=== PATIENT | male | born 1945 | race Caucasian/White ===

== ENCOUNTER 2016-08-16 17:30 | Inpatient (IN) | payer OTHER, BC ==
[~2016-08-16] VITALS: Ht 185.4 cm; Wt 78.5 kg
--- NOTE | ~2016-08-16 | HC ---
[facility] [place] [address] [address] [place] [address] CONSULTATION Name: VERA MORENO Zofia Room #: 419-P [facility] IN ..#: [id number] Admission: 08/16/16 Attend Phys: Neri Ang MD Discharge: 08/18/16 Date of : 47 Report #: [id number] THIS REPORT FOR: //name// CC: STEVE physician/PCP Damaso Pavon PRIMARY CARE PHYSICIAN: None. PARTS PROFESSIONAL: at [facility]. REFERRING PHYSICIAN: Dr. Pavon. REASON FOR REFERRAL: Dyspnea, large pleural effusion. HISTORY OF PRESENT ILLNESS: The patient is a 71-year-old white male who presented to the Emergency Room with progressive dyspnea. Chest x-ray and chest CT shows a large left-sided pleural effusion. A pulmonary consultation was requested. The patient states that he has been not feeling well for the past 4 months. He thinks he had flu about 4 months ago. Ever since then, he noticed that his energy level was not normal. He has had mild dyspnea that has been progressive more recently. Otherwise, the patient has been relatively healthy except for rheumatoid arthritis for which he is on Humira and methotrexate. He had lived in [place], [place] for most of his life and recently moved to the [place] area. Otherwise, denies any night sweats, fevers, chills, chest pain. Denies any recent weight loss. The patient does smoke about a pack a day for most of his life. PAST MEDICAL HISTORY: As mentioned above, rheumatoid arthritis, tobacco abuse. PAST SURGICAL HISTORY: Unremarkable. ALLERGIES: None to medications. HOME MEDICATIONS: Methotrexate, Humira, ibuprofen, fish oil supplements, cholecalciferol supplements. FAMILY HISTORY: Noncontributory. SOCIAL HISTORY: He smokes about a pack a day and has done so most of his life. [facility] [address] [place] [address] CONSULTATION Name: JOSHVERA P Room #: 419-P [facility] IN [facility]#: [id number] Admission: 08/16/16 Attend Phys: Neri Ang MD Discharge: 08/18/16 Date of : 47 Report #: [id number] He is , recently moved from [place]. His children live in [place] area. He is retired. FAMILY HISTORY: Noncontributory. REVIEW OF SYSTEMS: As mentioned above, otherwise 10-point system review negative. PHYSICAL EXAMINATION: GENERAL: He is awake, alert, in no apparent distress. VITAL SIGNS: Temperature is 98 degrees Fahrenheit, pulse is 80, respiratory rate is 20, blood pressure 123/72 mmHg, saturation 93% on 4 liters of O2. HEENT: Normocephalic, atraumatic. NECK: Supple, without lymphadenopathy or thyromegaly. CHEST: Breath sounds are decreased in the left lung field. Right lung field revealed clear breath sounds. CARDIOVASCULAR: Normal S1, S2. No murmurs or gallop. Pulses are 2+/4+ bilaterally. ABDOMEN: Soft, nontender, no organomegaly or masses felt. GENITOURINARY AND RECTAL: Deferred. EXTREMITIES: No cyanosis or edema. Mild clubbing is noted in his digits. LABORATORY DATA: CT chest was reviewed. It shows a large left-sided pleural effusion, there appears to be a density involving the infrahilar, subcarinal area. Atelectasis, left lower lobe is noted. Echocardiogram was unremarkable. Note that the CT chest angiogram did not show any evidence of pulmonary embolus. Leg Doppler ultrasound was negative. Sodium 123, potassium 3.9, chloride 92, CO2 is 21, BUN is 14, creatinine 0.8. Liver function test is grossly unremarkable except for elevated alkaline phosphatase. WBC 10,800, hemoglobin is 12.5, platelets are normal. Arterial blood gas revealed pH 7.40, pCO2 of 30, pO2 53 on room air, albumin 3.4. IMPRESSION: 1. Large left-sided pleural effusion in this 71-year-old white male with what appears to be mediastinal lymphadenopathy. The patient has smoked most of his life. He reports history of influenza about 4 months ago. exam shows mild clubbing. Etiology is probably related to neoplastic process resulting in a large pleural effusion. Other considerations include parapneumonic effusion. Transudative effusion is felt to be less likely given a normal echocardiogram. 2. Acute hypoxic respiratory failure due to above. 3. Lifelong history of tobacco abuse. 4. Rheumatoid arthritis. I do not think this is related to rheumatoid, pleural effusion. RECOMMENDATION: I agree with thoracentesis. It was sent for microbiologic studies along with cytology. We will then repeat the chest CT to better assess [address] [address] CONSULTATION Name: VERA MORENO Room #: 419-P [facility] IN ..#: [id number] Admission: 08/16/16 Attend Phys: Neri Ang MD Discharge: 08/18/16 Date of : 47 Report #: [id number] the mediastinal area. The patient may eventually need bronchoscopy or even ultrasound bronchoscopy. If the patient is stable following large volume thoracentesis, the patient could be discharged and some other workup can be performed as an outpatient. Lastly, smoke cessation is recommended. Thank you for this consultation. <ELECTRONICALLY SIGNED> By: Bryce Lora MD 08/22/16 1125 1206 2208 Bryce Lora MD /nt
--- NOTE | ~2016-08-16 | EKG ---
[address] [address] ELECTROCARDIOGRAM REPORT Name: VERA MORENO Room #: 419-P [facility] IN [facility]#: [id number] Admission: 08/16/16 Attend Phys: Neri Ang MD Discharge: 08/18/16 Date of : 47 Report #: [id number] THIS REPORT FOR: //name// [facility] ED Test Date: 2016-08-16 Test Time: 18:59:07 Pat Name: VERA JACKSONCHYNA Department: Room: [facility] Gender: M Clinical Appeals Reviewer: jihan : 1945 Requested By: Ramon Haley Order Number: [id number] MD: Barrett Feliciano Measurements Intervals [place] Rate: 74 P: 33 MI: 145 QRS: 65 QRSD: 119 T: 33 QT: 387 QTc: 430 Interpretive Statements Sinus rhythm Probable left atrial enlargement Nonspecific intraventricular conduction delay Low voltage, precordial leads Baseline wander in lead(s) V3 No previous ECG available for comparison Electronically Signed On 08-21-2016 8:08:14 CDT by Barrett Feliciano [email or web address] <ELECTRONICALLY SIGNED> By: Barrett Feliciano MD 08/21/16 0808 58 58 Barrett Feliciano MD /EPI
--- NOTE | ~2016-08-16 | 2DMMODE ---
[facility] [place] [address] 2 D/M-MODE ECHOCARDIOGRAM Name: VERA MORENO Room #: 249-P [facility] IN M.R.#: [id number] Admission: 08/16/16 Attend Phys: Nicholas Angeles Discharge: Date of : 47 Date of Service: 08/17/16 1140 Report #: [id number] THIS REPORT FOR: //name// APPROVED REPORT Study performed: 08/17/2016 09:52:03 EXAM: Comprehensive 2D, Doppler, and color-flow Echocardiogram Patient Location: ICU Room #: 249 Blood Pressure: 120/52 mmHg HR: 81 bpm Other Information Study Quality: Fair Indications Dyspnea Echo Enhancing Agent Indication: Endocardial border delineation Agent/Amount Used: Definity 2 cc 2D Dimensions LVEF(%): 69.22 (>50%) IVSd: 10.65 (7-11mm) LVOT Diam: 21.55 (18-24mm) LVDd: 39.24 mm PWd: 11.05 (7-11mm) Ascending Ao: 24.84 (22-36mm) LVDs: 24.20 (25-40mm) Aortic Root: 28.24 mm IVC: 18.00 mm Eid's LVEF: 69.22 % Aortic Valve AoV Peak Johnson.: 1.35 m/s AO Peak Gr.: 7.32 mmHg LVOT Max P.27 mmHg LVOT Max V: 1.15 m/s DAYMAI Vmax: 3.09 cm2 Mitral Valve E/A Ratio: 1.0 MV Decel. Time: 284.94 ms MV E Max Johnson.: 0.62 m/s [facility] [address] [place] [address] 2 D/M-MODE ECHOCARDIOGRAM Name: VERA MORENO Room #: 249-P [facility] IN [facility]#: [id number] Admission: 08/16/16 Attend Phys: Nicholas Angeles Discharge: Date of : 47 Date of Service: 08/17/16 1140 Report #: [id number] A Johnson.: 0.61 m/s MV PHT: 82.63 ms IVRT: 78.43 ms Pulmonary Valve PV Peak Johnson.: 1.40 m/s PV Peak Gr.: 7.89 mmHg Pulmonary Vein P Vein S: 40.3 m/s P Vein A: 29.58 m/s P Vein D: 17.4 m/s P Vein A Dur.: 101.5 msec Tricuspid Valve RAP Estimate: 5.00 mmHg Left Ventricle The left ventricle is normal size. There is normal left ventricular wall thickness. The left ventricular systolic function is normal. The left ventricular ejection fraction is within the normal range. LVEF is 60-65%. The left ventricular diastolic function is normal. Right Ventricle The right ventricle is normal size. The right ventricular systolic function is normal. Atria The left atrium size is normal. The right atrium size is normal. Aortic Valve The aortic valve is normal in structure. No aortic regurgitation is present. There is no aortic valvular stenosis. Mitral Valve The mitral valve is normal in structure. There is no mitral valve regurgitation noted. No evidence of mitral valve stenosis. Tricuspid Valve The tricuspid valve is normal in structure. There is no tricuspid valve regurgitation noted. Pulmonic Valve The pulmonary valve is normal in structure. There is no pulmonic valvular regurgitation. Great Vessels The aortic root is normal in size. IVC is normal in size and [facility] [address] [place] [address] 2 D/M-MODE ECHOCARDIOGRAM Name: VERA MORENO Zofia Room #: 249-P [facility] IN .R.#: [id number] Admission: 08/16/16 Attend Phys: Nicholas Angeles Discharge: Date of : 47 Date of Service: 08/17/16 1140 Report #: [id number] collapses >50% with inspiration. Pericardium There is no pericardial effusion. <Conclusion> The left ventricle is normal size. LVEF is 60-65%. The aortic valve is normal in structure. The mitral valve is normal in structure. The tricuspid valve is normal in structure. The pulmonary valve is normal in structure. <ELECTRONICALLY SIGNED> By: Jani Armenta MD 08/17/16 1140 1140 1140 Jani Armenta MD /INF
--- NOTE | ~2016-08-16 | CNG ---
[facility] [place] [address] [place] [address] CYTO-NONGYN REPORT PROCEDURE Name: BRENT VICK Room #: 419-P [facility] IN M.R.#: [id number] Admission: 08/16/16 Date of : 47 Discharge: Report #: [id number] Path Case #: [id number] CYTOPATHOLOGY REPORT COLLECTION DATE: 08/17/2016 RECEIVED DATE: 08/17/2016 SUBMITTING PHYS: Dr. Neri Ang OTHER PHYS: Dr. Librado Petit CLINICAL HISTORY: Pneumonia. SPECIMEN(S) RECEIVED: A.Pleural fluid * * * * * * * * * * * * FINAL DIAGNOSIS: Pleural fluid: - No malignant epithelial cells identified. - Lymphocytosis with mesothelial cells, histiocytes and numerous small round mature appearing lymphocytes identified (see comment). COMMENT: Due to the lymphocytosis, the pleural fluid is being sent to [facility] for flow cytometric immunophenotypic analysis ([id number]). An addendum report will follow. Clinical and radiographic correlation is recommended. PATHOLOGIST: Deana Ruiz M.D. REPORT ELECTRONICALLY SIGNED BY: Deana Ruiz M.D. DATE/TIME: 08/18/2016 13:58 * * * * * * * * * * * * GROSS PATHOLOGY: A. Pleural fluid: The specimen is submitted unfixed, labeled "Brent Vick". Received by the Cytology Department is 15 mL of yellow fluid. One ThinPrep slide and a cell block were prepared. (clt 08.17.2016) RESIDENTIAL ELECTRICIAN(S): Kassi Dow, ELADIA(ASCP), IAC INITIAL CPT CODE(S): A; 26198, 46042 Professional services performed by [facility] at [facility] [address], [place] [address] Technical services performed by [facility] at [address] [place] [address], [address], [place] [address]. [facility] [address] [place] [address] CYTO-NONGYN REPORT PROCEDURE Name: BRENT VICK Room #: 419-P [facility] IN M.R.#: [id number] Admission: 08/16/16 Date of : 47 Discharge: Report #: [id number] Path Case #: [id number] [facility] [address] [place] [address], [address] [place] [address] PHONE: [phone] DIRECTOR: Jose Roberto Bills M.D. * * * END OF REPORT * * *
[2016-08-16 17:40] VITALS: BP 179/81
[2016-08-16] MEDS ORDERED: METHOTREXATE 22.5 MG PO (17:48)
[2016-08-16] MEDS ORDERED: IBUPROFEN 200200 M1 PO (17:49)
[2016-08-16] MEDS ORDERED: D-20002000 UNIT PO (17:49)
[2016-08-16] MEDS ORDERED: FISH OIL 1,001000 M2 PO (17:49)
[2016-08-16] MEDS ORDERED: HUMIRA40 MG/0.1 SQ (17:49)
[2016-08-16 18:24] LABS: ABSOLUTE NEUTROPHILS 9.4 thou/uL (1.4-8.2); BASOPHILS 0.2 % (0.0-2.0); EOSINOPHILS 0.3 % (0.0-3.0); HEMATOCRIT 42.6 % (42.0-52.0); LYMPHOCYTES 15.5 % (24.0-44.0); MCH 30.1 pg (26.0-34.0); MCHC 35.1 g/dL (28.0-37.0); MCV 85.7 fL (80.0-100.0); MONOCYTES 7.6 % (1.0-8.0); PLATELET COUNT 283 thou/uL (150-400); POLYS 76.4 % (36.0-66.0); RBC 4.97 mil/uL (4.50-6.00); WBC 12.3 thou/uL (4.0-11.0)
[2016-08-16 18:25] LABS: MANUAL DIFF NO
[2016-08-16 18:34] LABS: ANION GAP 10 mmol/L (7-16); BUN 19 mg/dL (7-18); CALCIUM 9.1 mg/dL (8.5-10.1); CHLORIDE 91 mmol/L (98-107); CO2 21 mmol/L (21-32); CREATININE 0.8 mg/dL (0.7-1.3); GLUCOSE 111 mg/dL (74-106); POTASSIUM 4.2 mmol/L (3.5-5.1); SODIUM 122 mmol/L (136-145)
[2016-08-16 18:45] LABS: ALBUMIN 3.4 g/dL (3.4-5.0); ALKALINE PHOSPHATASE 128 U/L (46-116); NT-PRO BRAIN NAT PEPTIDE 35 pg/mL (<300); SGOT 23 U/L (15-37); SGPT 27 U/L (30-65); TOTAL BILIRUBIN 0.7 mg/dL (<0.1-1.0); TOTAL PROTEIN 7.5 g/dL (6.4-8.2); TROPONIN-I < 0.04 ng/mL (<0.04-0.07)
[2016-08-16 18:54] LABS: ABG SAMPLE TYPE ARTERIAL; BE(vivo) -1.6 mmol/L (-2 to +3); HCO3 20.9 mmol/L (22.0-26.0); LACTATE 1.15 mmol/L (0.5-2.0); O2(CT) 19.3 mL/dL (15.0-23.0); PCO2 30.1 mmHg (35.0-45.0); sO2 90.1 % (92.0-98.0); tCO2 21.9 mmol/L (24.0-30.0)
[2016-08-16 18:59] LABS: PO2 53.9 mmHg (80.0-100.0)
[2016-08-16 19:00] LABS: STICK SITE R.RADIAL
[2016-08-16 19:08] LABS: URINE BILIRUBIN NEGATIVE (Negative); URINE BLOOD TRACE (Negative); URINE COLOR YELLOW; URINE GLUCOSE-RANDOM* NEGATIVE (Negative); URINE KETONES 2+ (Negative); URINE NITRITE NEGATIVE (Negative); URINE PROTEIN (DIPSTICK) TRACE (Negative); URINE SPECIFIC GRAVITY 1.025 (1.003-1.035); URINE UROBILINOGEN 0.2 E.U./dl (0.2-1.0)
[2016-08-16 20:09] VITALS: BP 143/77
[2016-08-16 20:30] VITALS: BP 156/83
[2016-08-17] VITALS (10 sets, daily range): BP systolic 91–147; BP diastolic 48–79
[2016-08-17 06:30] LABS: HEMOGLOBIN 15.5 gm/dL (14.0-18.0); MCH 30.3 pg (26.0-34.0); MCHC 35.2 g/dL (28.0-37.0); MCV 86.2 fL (80.0-100.0); RBC 5.11 mil/uL (4.50-6.00); RDW 12.8 % (10.5-14.5); WBC 10.8 thou/uL (4.0-11.0)
[2016-08-17 06:43] LABS: CALCIUM 8.7 mg/dL (8.5-10.1); CREATININE 0.8 mg/dL (0.7-1.3); POTASSIUM 3.9 mmol/L (3.5-5.1)
[2016-08-17 10:54] LABS: INR 1.1
[2016-08-17 14:35] LABS: BF NUCLEATED CELLS 4521; BF RBC 4203
[2016-08-17 14:37] LABS: CLARITY HAZY; COLOR YELLOW; TOTAL VOLUME 60 mL
[2016-08-17 15:17] LABS: MANUAL DIFF YES
[2016-08-18 04:00] VITALS: BP 118/55
[2016-08-18 05:48] LABS: HEMOGLOBIN 14.6 gm/dL (14.0-18.0); MCH 29.9 pg (26.0-34.0); MCHC 34.1 g/dL (28.0-37.0); MCV 87.8 fL (80.0-100.0); RBC 4.9 mil/uL (4.50-6.00); RDW 12.9 % (10.5-14.5); WBC 12.8 thou/uL (4.0-11.0)
[2016-08-18 05:57] LABS: CALCIUM 9.1 mg/dL (8.5-10.1); CREATININE 0.9 mg/dL (0.7-1.3); POTASSIUM 4.4 mmol/L (3.5-5.1)
[2016-08-18 07:23] VITALS: BP 106/51
[2016-08-18] MEDS ORDERED: CEFDINIR300 MG PO (15:35)
[2016-08-18] MEDS ORDERED: AZITHROMYCIN 2250 MG PO (15:35)
[2016-08-18] MEDS ORDERED: MUCINEX DM TABL1 TA1 PO (15:36)
[2016-08-18 15:52] VITALS: BP 117/52
[2016-08-18 16:31] VITALS: BP 117/52
[2016-08-18 16:34] VITALS: BP 117/52
[2016-08-18 17:12] LABS: BODY FLUID GLUCOSE 105 mg/dL (()); BODY FLUID LDH 310 IU/L (())
[2016-08-21 15:28] LABS: BF MACROPHAGE 12; BF NEUTROPHILS 1
== END 2016-08-18 18:00 | disposition home or self-care (01) | DRG 871 ==
LOC: ER 17:30 → 4E 19:34 → ICU 19:34 → EROBS 19:34 → 4E 20:10 → ICU 08-17 01:31 → 4E 08-17 14:53
PROVIDERS: Emergency Medicine; Hospitalist
PROC: 0W9B3ZZ Drainage of Left Pleural Cavity, Percutaneous Approach (ICD-10-PCS; principal; 2016-08-17)
PROC: BB4BZZZ Ultrasonography of Pleura (ICD-10-PCS; principal; 2016-08-17)
DX: A41.9 Sepsis, unspecified organism (principal); J18.9 Pneumonia, unspecified organism; J96.01 Acute respiratory failure with hypoxia; J90 Pleural effusion, not elsewhere classified; M06.9 Rheumatoid arthritis, unspecified; F17.210 Nicotine dependence, cigarettes, uncomplicated; R59.0 Localized enlarged lymph nodes
CPT/HCPCS: 10183

== ENCOUNTER → 2016-08-25 | Outpatient (CLI) | payer OTHER, BC ==
[~2016-08-25] MED LIST: AZITHROMYCIN 2250 MG PO; CEFDINIR300 MG PO; D-20002000 UNIT PO; FISH OIL 1,001000 M2 PO; FOLIC ACID1 MG PO; HUMIRA40 MG/0.1 SQ; IBUPROFEN 200200 M1 PO; METHOTREXATE 22.5 MG PO; MUCINEX DM TABL1 TA1 PO
--- NOTE | ~2016-08-25 | CNG ---
[facility] [place] [address] CYTO-NONGYN REPORT PROCEDURE Name: BRENT VICK Room #: REG [facility] Talia#: [id number] Admission: 08/25/16 Date of : 47 Discharge: Report #: [id number] Path Case #: [id number] CYTOPATHOLOGY REPORT COLLECTION DATE: 08/25/2016 RECEIVED DATE: 08/25/2016 SUBMITTING PHYS: Dr. Bryce Lora OTHER PHYS: Dr. Bebeto Rodas CLINICAL HISTORY: Pleural effusion SPECIMEN(S) RECEIVED: A.Pleural fluid, Chest * * * * * * * * * * * * FINAL DIAGNOSIS: A. Pleural fluid: - No malignant epithelial cells identified. Reactive mesothelial cells and numerous inflammatory cells and abundant lymphocytosis. PATHOLOGIST: Oralia Marroquin M.D. REPORT ELECTRONICALLY SIGNED BY: Oralia Marroquin M.D. DATE/TIME: 08/28/2016 14:12 * * * * * * * * * * * * GROSS PATHOLOGY: A. Pleural fluid, Chest: The specimen is submitted unfixed, labeled "Brent Vick". Received by the Cytology Department is 17 mL of cloudy red fluid. One ThinPrep slide and a cell block were prepared. (mm 08.25.2016) SENIOR EDITOR(S): ELADIA Rivas(ASCP) INITIAL CPT CODE(S): A; 71622, 88201 Professional services performed by [facility] at [facility] , [place] [address] Technical services performed by [facility] at [address] [place] [address]., [address], [place] [address]. [facility] [address] [place] [address], [facility] [address] [place] [address] PHONE: [phone] [facility] [address] [place] [address] CYTO-NONGYN REPORT PROCEDURE Name: BRENT VICK Room #: REG [facility]gar#: [id number] Admission: 08/25/16 Date of : 47 Discharge: Report #: [id number] Path Case #: [id number] DIRECTOR: Jose Roberto Bills M.D. * * * END OF REPORT * * *
[2016-08-25 15:12] LABS: BF NUCLEATED CELLS 5663; BF RBC 25168
[2016-08-25 15:17] LABS: CLARITY TURBID; COLOR RED; TOTAL VOLUME 55 mL
[2016-08-25 16:00] LABS: MANUAL DIFF YES
[2016-08-25 16:02] LABS: BF MACROPHAGE 0; BF NEUTROPHILS 3
[2016-08-27 01:05] LABS: BODY FLUID ALBUMIN 2.1 g/dL (()); BODY FLUID AMYLASE 50 U/L (()); BODY FLUID GLUCOSE 124 mg/dL (()); BODY FLUID LDH 296 IU/L (()); BODY FLUID PROTEIN 3.3 g/dL (())
== END | disposition home or self-care (01) ==
LOC: ULTRA 11:15 → RAD 11:15
PROVIDERS: Internal Medicine Pulmonary Disease
DX: J90 Pleural effusion, not elsewhere classified (principal)

== ENCOUNTER → 2016-08-31 | Outpatient (CLI) | payer OTHER, BC ==
[~2016-08-31] MED LIST changes: -FOLIC ACID1 MG PO
[2016-09-01 13:43] LABS: HEMATOCRIT 43.8 % (42.0-52.0); HEMOGLOBIN 14.9 gm/dL (14.0-18.0); MCH 30.1 pg (26.0-34.0); MCV 88.4 fL (80.0-100.0); RBC 4.95 mil/uL (4.50-6.00); RDW 13.4 % (10.5-14.5); WBC 15.4 thou/uL (4.0-11.0)
[2016-09-01 13:55] LABS: CALCIUM 9.2 mg/dL (8.5-10.1); CREATININE 0.9 mg/dL (0.7-1.3); POTASSIUM 4.4 mmol/L (3.5-5.1)
[2016-09-01 14:03] LABS: PROTIME 10.4 Seconds (9.3-11.4)
== END ==
LOC: RAD 09:51
PROVIDERS: Internal Medicine Pulmonary Disease
DX: J90 Pleural effusion, not elsewhere classified (principal); R06.02 Shortness of breath

== ENCOUNTER → 2016-09-01 | Outpatient (CLI) | payer OTHER, BC ==
[~2016-09-01] MED LIST changes: +FOLIC ACID1 MG PO
--- NOTE | ~2016-09-01 | CNG ---
[facility] [place] [place] [address] CYTO-NONGYN REPORT PROCEDURE Name: BRENT VICK Room #: REG [facility] Melgar#: [id number] Admission: 09/01/16 Date of : 47 Discharge: Report #: [id number] Path Case #: [id number] CYTOPATHOLOGY REPORT COLLECTION DATE: 09/01/2016 RECEIVED DATE: 09/01/2016 SUBMITTING PHYS: Dr. Bryce Lora OTHER PHYS: CLINICAL HISTORY: Left chest fluid. SPECIMEN(S) RECEIVED: A.Pleural fluid, Left * * * * * * * * * * * * FINAL DIAGNOSIS: Pleural fluid, left: - Rare groups of atypical cells are identified amongst reactive mesothelial cells and lymphocytes. - See comment. COMMENT: The atypical cells are positive for [place]on-EP4 and negative for calretinin. Due to these atypical cells being positive for [place]-EP4, an epithelial malignancy cannot be ruled out This case is also reviewed by Dr. Deana Ruiz. PATHOLOGIST: Bry Gu M.D. REPORT ELECTRONICALLY SIGNED BY: Bry Gu M.D. DATE/TIME: 09/06/2016 12:38 * * * * * * * * * * * * GROSS PATHOLOGY: A. Pleural fluid, Left: The specimen is submitted unfixed, labeled "Brent Vick". Received by the Cytology Department is 25 mL of red fluid. One ThinPrep slide and a cell block were prepared. (clt 09.01.2016) PATIENT TRANSITION SPECIALIST(S): Kassi Dow, CT(ASCP), IAC INITIAL CPT CODE(S): A; 50123, 87606, 19627, 72357 Professional services performed by [facility] at [facility] [address] [facility] [address], [place] [address] Technical services performed by [facility] at [address] [place] [address], [address], [place] [address]. [facility] [address] [place] [address] CYTO-NONGYN REPORT PROCEDURE Name: BRENT VICK Room #: REG ARON Walters.#: [id number] Admission: 09/01/16 Date of : 47 Discharge: Report #: [id number] Path Case #: [id number] [facility] [address] [place] [address], [facility] [address] [place] [address] PHONE: [phone] DIRECTOR: Jose Roberto Bills M.D. * * * END OF REPORT * * *
== END | disposition home or self-care (01) ==
LOC: ULTRA 13:07
DX: J90 Pleural effusion, not elsewhere classified (principal)

== ENCOUNTER 2016-09-05 14:29 | Inpatient (IN) | payer OTHER, BC ==
[~2016-09-05] VITALS: Ht 185.4 cm; Wt 78.5 kg
--- NOTE | ~2016-09-05 | HC ---
[facility] [place] [address] [place] [address] CONSULTATION Name: RENETTACHYNAVERA P Room #: 215-P [facility] IN M.R.#: [id number] Admission: 09/05/16 Attend Phys: Damaso Pavon MD Discharge: Date of : 47 Report #: [id number] THIS REPORT FOR: //name// CC: Damaso Rodas DATE OF SERVICE: 09/05/2016 REASON FOR CONSULTATION: Pleural effusion. IMPRESSION: 1. Recurrent pleural effusion. 2. Chest pain. 3. Elevated troponin. 4. Rheumatoid arthritis. 5. Immune deficiency. 6. History of tobacco use. PLAN: 1. Finished up Cardiology evaluation. 2. Consider VAT to make diagnosis and to pleurodesis, otherwise could consider a repeat thoracentesis and CT chest after. 3. Aerosol therapy. 4. Discussed with Dr. Pavon regarding further workup for vasculitis. HISTORY OF PRESENT ILLNESS: A very pleasant 71-year-old male on Sunday had thoracentesis. By Sunday, had shortness of breath and at times chest pain. There is somewhat of a pleuritic component to this. He denied fever, chills, night sweats. No nausea or vomiting. PAST MEDICAL HISTORY: Include tobacco use and rheumatoid arthritis. ALLERGIES: No known. FAMILY HISTORY: Noncontributory. SOCIAL HISTORY: Positive tobacco. Negative ETOH. REVIEW OF SYSTEMS: No fever or chills. No vision change. Positive chest pain. No hemoptysis or hematemesis. No peripheral edema or calf tenderness. PHYSICAL EXAMINATION: VITAL SIGNS: Temperature 97.7, pulse 78, respirations 20, BP 112/68. EYES: Negative icterus. NECK: Trachea midline. LUNGS: on left. [facility] [address] [place] [address] CONSULTATION Name: VERA MORENO Room #: 215-P [facility] IN .R.#: [id number] Admission: 09/05/16 Attend Phys: Damaso Pavon MD Discharge: Date of : 47 Report #: [id number] HEART: Regular. ABDOMEN: Bowel sounds present. EXTREMITIES: Showed no edema or cyanosis. LABORATORY DATA: Chest x-ray showed significant left effusion, question infiltrate. White count 13.6, platelets 395, hemoglobin 14.4, BUN 24, creatinine 0.9, albumin 27, INR 1.0. Troponin 0.15. We will follow closely with you. By: 2245 1223 Emma Blackman MD /nt
--- NOTE | ~2016-09-05 | HC ---
[facility] [place] [address] [place] [address] CONSULTATION Name: RENETTACHYNAVERA Zofia Room #: 215-P [facility] IN .R.#: [id number] Admission: 09/05/16 Attend Phys: Damaso Pavon MD Discharge: 09/08/16 Date of : 47 Report #: [id number] THIS REPORT FOR: //name// CC: Damaso Rodas REASON FOR CONSULTATION: Chest pain and positive troponin. HISTORY OF PRESENT ILLNESS: The patient is a 71-year-old male with history of tobacco abuse and rheumatoid arthritis, recently admitted and discharged with a symptomatic pleural effusion that was tapped. Since then, he has had the effusion tapped multiple times and is followed with Pulmonary. He reports that when the effusion starts to reaccumulate, he starts developing some chest pain with radiation to the bilateral arms. He had these symptoms today. He reports that this pain is worse if he sits up or turns to his side, but occasionally this pain will be worse with activity. He denies any problems with PND or orthopnea. He denies presyncope or syncope. REVIEW OF SYSTEMS: GENERAL: No fevers or chills. HEENT: No blurred vision. CARDIOVASCULAR: As above. PULMONARY: No productive cough. GASTROINTESTINAL: No nausea or vomiting. GENITOURINARY: No dysuria. MUSCULOSKELETAL: No myalgias or arthralgias. ENDOCRINE: No diabetes. PAST MEDICAL HISTORY: 1. Rheumatoid arthritis, followed at [facility]. 2. Tobacco abuse. SOCIAL HISTORY: He continues to smoke. FAMILY HISTORY: Noncontributory. ALLERGIES: No known drug allergies. MEDICATIONS: Reviewed. PHYSICAL EXAMINATION: VITAL SIGNS: Temperature 36.6, pulse 80, respiration 14, blood pressure 123/68 and sats 93%. GENERAL: He is in no acute distress, thin male. HEENT: Oropharynx is clear. NECK: Supple, with no thyromegaly. HEART: Regular rate and rhythm with no murmurs, rubs or gallops. [facility] [address] [place] [address] CONSULTATION Name: VERA MORENO Room #: 215-[facility].#: [id number] Admission: 09/05/16 Attend Phys: Damaso Pavon MD Discharge: 09/08/16 Date of : 47 Report #: [id number] LUNGS: Clear bilaterally with some decreased breath sounds at the left lower base. ABDOMEN: Soft, nontender and nondistended. EXTREMITIES: There is no clubbing, cyanosis or edema. NEUROLOGIC: Cranial nerves 2-12 are intact. LABORATORY DATA: White count 13.6, hemoglobin 14 and platelets 395. Sodium 132, potassium 4.7, BUN 24 and creatinine 0.9. Troponin 0.13. BNP 155. Chest x-ray shows a left-sided pleural effusion, which I reviewed. His EKG shows normal sinus rhythm with normal intervals, some mild ST changes, but not consistent with ischemia. ASSESSMENT: 1. Chest pain. 2. Elevated troponin. 3. Tobacco abuse. 4. Recurrent pleural effusions. 5. Rheumatoid arthritis. SUMMARY: The patient is a 71-year-old with tobacco abuse and rheumatoid arthritis, presenting with chest pain and found to have a positive troponin. Etiology of his chest pain is not entirely clear, and it could be related to pleural effusions, but he does have risk factors for coronary artery disease. I have recommended that we eventually have him undergo a nuclear stress test, but I will defer this until his pulmonary evaluation is completed, whether or not this requires a repeat thoracentesis. His recent echocardiogram showed normal LV size and function during his last hospitalization. <ELECTRONICALLY SIGNED> By: Barrett Feliciano MD 09/11/16 0830 1751 0301 Barrett Feliciano MD /nt
--- NOTE | ~2016-09-05 | CNG ---
[facility] [place] [address] [place] [address] CYTO-NONGYN REPORT PROCEDURE Name: BRENT MORENO Room #: 215-P DIS IN M.R.#: [id number] Admission: 09/05/16 Date of : 47 Discharge: 09/08/16 Report #: [id number] Path Case #: [id number] CYTOPATHOLOGY REPORT COLLECTION DATE: 09/08/2016 RECEIVED DATE: 09/08/2016 SUBMITTING PHYS: Dr. Bryce Lora OTHER PHYS: Dr. Bebeto Petit CLINICAL HISTORY: Left pleural effusion SPECIMEN(S) RECEIVED: A.Pleural fluid, Left * * * * * * * * * * * * FINAL DIAGNOSIS: Pleural fluid, Left: Positive for malignancy. - Rare atypical malignant epithelial cells consistent with metastatic carcinoma identified amongst numerous background reactive lymphocytes. (See comment). COMMENT: Properly controlled immunohistochemical stains are performed on the cell block. Block A1 BerEP4 with repeat - Rare small groups of cells with membranous reactivity. TTF-1 - Rare small groups of reactive nuclei Calretinin - Stains rare scattered mesothelial cells CD68 - Stains histiocytes The patient has a history of "rare groups of atypical cells are identified amongst reactive mesothelial cells and lymphocytes" with a comment of epithelial malignancy cannot be ruled out from a previous left pleural fluid ([id number]). The current case is co-reviewed with Dr. Oralia Marroquin. The case is discussed with Dr. Bryce Lora on 09/13/16 at 1:00 PM. PATHOLOGIST: Deana Ruiz M.D. REPORT ELECTRONICALLY SIGNED BY: Deana Ruiz M.D. DATE/TIME: 09/13/2016 16:09 * * * * * * * * * * * * GROSS PATHOLOGY: A. Pleural fluid, Left: The specimen is submitted unfixed, labeled "Nicanor Brent P". Received by the Cytology Department is 15 mL of cloudy red fluid. One ThinPrep slide and a cell block were prepared. (mm .) [address] [address] CYTO-NONGYN REPORT PROCEDURE Name: BRENT MORENO Room #: 215-P [facility] IN M.R.#: [id number] Admission: 09/05/16 Date of : 47 Discharge: 09/08/16 Report #: [id number] Path Case #: [id number] CONSTRUCTION TECH(S): ELADIA Levi(ASCP) INITIAL CPT CODE(S): A; 54908, 65921, 26127, 56883, 09835, 61168 Professional services performed by [facility] at [address], [place] [address] [facility] by [facility] at [address] [place] [address]., [address], [place] [address]. [facility], [address] [place] [address] PHONE: [phone] DIRECTOR: Jose Roberto Bills M.D. * * * END OF REPORT * * *
--- NOTE | ~2016-09-05 | EKG ---
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 : 1945 Requested By: Mei Samson Order Number: [id number] MD: Barrett Feliciano Measurements Intervals [place] Rate: 95 P: 49 VT: 118 QRS: 71 QRSD: 88 T: 64 QT: 337 QTc: 424 Interpretive Statements Sinus rhythm Borderline short VT interval Probable left atrial enlargement Minimal ST depression, anterolateral leads Compared to ECG 08/16/2016 18:59:07 ST (T wave) deviation now present Intraventricular conduction delay no longer present Electronically Signed On 09-05-2016 17:10:23 CDT by Barrett Feliciano [email or web address] <ELECTRONICALLY SIGNED> By: Barrett Feliciano MD 09/05/16 1710 1435 1435 Barrett Feliciano MD /EPI
[~2016-09-05 14:29] MED LIST changes: -FOLIC ACID1 MG PO
[2016-09-05 14:30] VITALS: BP 130/79
[2016-09-05 15:14] LABS: ABSOLUTE NEUTROPHILS 11.3 thou/uL (1.4-8.2); BASOPHILS 0.1 % (0.0-2.0); EOSINOPHILS 0.4 % (0.0-3.0); HEMATOCRIT 42.6 % (42.0-52.0); HEMOGLOBIN 14.4 gm/dL (14.0-18.0); LYMPHOCYTES 11.5 % (24.0-44.0); MCH 29.8 pg (26.0-34.0); MCHC 33.9 g/dL (28.0-37.0); MCV 88.1 fL (80.0-100.0); PLATELET COUNT 395 thou/uL (150-400); RBC 4.84 mil/uL (4.50-6.00); RDW 13.4 % (10.5-14.5); WBC 13.6 thou/uL (4.0-11.0)
[2016-09-05 15:20] LABS: MANUAL DIFF NO
[2016-09-05 15:24] LABS: CALCIUM 9.1 mg/dL (8.5-10.1); CREATININE 0.9 mg/dL (0.7-1.3); POTASSIUM 4.7 mmol/L (3.5-5.1)
[2016-09-05 15:37] LABS: ALBUMIN 2.7 g/dL (3.4-5.0); TOTAL BILIRUBIN 0.3 mg/dL (<0.1-1.0); TROPONIN-I 0.13 ng/mL (<0.04-0.07)
[2016-09-05 17:12] VITALS: BP 123/68
[2016-09-05 18:00] VITALS: BP 118/74
[2016-09-05 18:08] LABS: PROTIME 10.1 Seconds (9.3-11.4)
[2016-09-05 18:11] VITALS: BP 118/74
[2016-09-05 21:59] VITALS: BP 112/68
[2016-09-06 03:16] LABS: ABSOLUTE NEUTROPHILS 9.6 thou/uL (1.4-8.2); BASOPHILS 1.1 % (0.0-2.0); EOSINOPHILS 1.5 % (0.0-3.0); HEMATOCRIT 41.4 % (42.0-52.0); HEMOGLOBIN 14.1 gm/dL (14.0-18.0); LYMPHOCYTES 23.3 % (24.0-44.0); MCH 29.8 pg (26.0-34.0); MCV 87.5 fL (80.0-100.0); MONOCYTES 9.1 % (1.0-8.0); PLATELET COUNT 372 thou/uL (150-400); RBC 4.73 mil/uL (4.50-6.00); RDW 13.2 % (10.5-14.5); WBC 14.8 thou/uL (4.0-11.0)
[2016-09-06 03:19] LABS: MANUAL DIFF NO
[2016-09-06 03:29] LABS: ALBUMIN 2.6 g/dL (3.4-5.0); CALCIUM 8.9 mg/dL (8.5-10.1); MAGNESIUM 2.1 mg/dL (1.8-2.4); POTASSIUM 3.9 mmol/L (3.5-5.1); TOTAL BILIRUBIN 0.3 mg/dL (<0.1-1.0); TOTAL PROTEIN 6.6 g/dL (6.4-8.2); TROPONIN-I 0.15 ng/mL (<0.04-0.07)
[2016-09-06 05:03] VITALS: BP 117/70
[2016-09-06] MEDS ORDERED: FOLIC ACID1 MG PO (07:46)
[2016-09-06 12:02] VITALS: BP 119/74
[2016-09-06 14:54] VITALS: BP 121/55
[2016-09-06 19:40] VITALS: BP 113/56
[2016-09-07 04:38] VITALS: BP 124/69
[2016-09-07 05:56] LABS: HEMATOCRIT 41.8 % (42.0-52.0); HEMOGLOBIN 14.4 gm/dL (14.0-18.0); MCH 29.9 pg (26.0-34.0); MCHC 34.4 g/dL (28.0-37.0); MCV 86.8 fL (80.0-100.0); RBC 4.81 mil/uL (4.50-6.00); RDW 13.4 % (10.5-14.5); WBC 13.7 thou/uL (4.0-11.0)
[2016-09-07 06:09] LABS: CREATININE 0.8 mg/dL (0.7-1.3); POTASSIUM 4.5 mmol/L (3.5-5.1)
[2016-09-07 08:41] VITALS: BP 127/75
[2016-09-07 12:25] VITALS: BP 121/75
[2016-09-07 16:47] LABS: BF NUCLEATED CELLS 4467; BF RBC 84944
[2016-09-07 16:48] LABS: CLARITY CLOUDY; COLOR RED; TOTAL VOLUME 60 mL
[2016-09-07 17:38] LABS: MANUAL DIFF YES
[2016-09-07 17:39] LABS: BF MACROPHAGE 3; BF NEUTROPHILS 4
[2016-09-07 17:40] LABS: BF COMMENTS 1 MONOCYTE
[2016-09-07 21:48] VITALS: BP 121/70
[2016-09-08 03:45] VITALS: BP 110/71
[2016-09-08 06:23] LABS: ABSOLUTE NEUTROPHILS 8.7 thou/uL (1.4-8.2); BASOPHILS 1.2 % (0.0-2.0); EOSINOPHILS 0.6 % (0.0-3.0); HEMATOCRIT 41.4 % (42.0-52.0); HEMOGLOBIN 14.2 gm/dL (14.0-18.0); LYMPHOCYTES 19.8 % (24.0-44.0); MANUAL DIFF NO; MCH 29.6 pg (26.0-34.0); MCHC 34.2 g/dL (28.0-37.0); MCV 86.5 fL (80.0-100.0); MONOCYTES 9.6 % (1.0-8.0); PLATELET COUNT 353 thou/uL (150-400); POLYS 68.8 % (36.0-66.0); RBC 4.78 mil/uL (4.50-6.00); RDW 13.3 % (10.5-14.5); WBC 12.6 thou/uL (4.0-11.0)
[2016-09-08 06:27] LABS: CALCIUM 9.2 mg/dL (8.5-10.1); CREATININE 0.9 mg/dL (0.7-1.3); POTASSIUM 4.5 mmol/L (3.5-5.1)
[2016-09-08 07:28] VITALS: BP 118/64
[2016-09-08 11:13] LABS: BODY FLUID ALBUMIN 1.9 g/dL (()); BODY FLUID GLUCOSE 95 mg/dL (()); BODY FLUID LDH 393 IU/L (()); BODY FLUID PROTEIN 3.4 g/dL (())
[2016-09-08 15:55] VITALS: BP 120/71
[2016-09-08 16:43] VITALS: BP 120/71
[2016-09-12] MEDS ORDERED: MUCINEX DM TABL1 TA1 PO (08:50)
== END 2016-09-08 18:20 | disposition home or self-care (01) | DRG 186 ==
LOC: ER 14:29 → EROBS 16:36 → 2N 16:36
PROVIDERS: Family Medicine; Internal Medicine Pulmonary Disease; Nurse Practitioner Family
DX: J90 Pleural effusion, not elsewhere classified (principal); E43 Unspecified severe protein-calorie malnutrition; D84.9 Immunodeficiency, unspecified; E87.1 Hypo-osmolality and hyponatremia; R59.0 Localized enlarged lymph nodes; R91.8 Other nonspecific abnormal finding of lung field; M06.9 Rheumatoid arthritis, unspecified; Z87.891 Personal history of nicotine dependence; Z79.899 Other long term (current) drug therapy; Z91.040 Latex allergy status; Z91.018 Allergy to other foods; Z68.22 Body mass index [BMI] 22.0-22.9, adult; Z80.52 Family history of malignant neoplasm of bladder
CPT/HCPCS: 10081

== ENCOUNTER → 2016-09-14 | Outpatient (CLI) | payer OTHER, BC ==
[~2016-09-14] MED LIST changes: +FOLIC ACID1 MG PO
--- NOTE | ~2016-09-14 | CNG ---
[facility] [place] [address] [place] [address] CYTO-NONGYN REPORT PROCEDURE Name: BRENT VICK Room #: REG [facility]#: [id number] Admission: 09/14/16 Date of : 47 Discharge: Report #: [id number] Path Case #: [id number] CYTOPATHOLOGY REPORT COLLECTION DATE: 09/14/2016 RECEIVED DATE: 09/14/2016 SUBMITTING PHYS: Dr. Bryce Lora OTHER PHYS: Dr. Phi Patel M.D. CLINICAL HISTORY: Pleural Effusion SPECIMEN(S) RECEIVED: A.Pleural fluid, Chest * * * * * * * * * * * * FINAL DIAGNOSIS: A. Chest Pleural fluid: RARE ATYPICAL CELLS IDENTIFIED MORPHOLOGICALLY SIMILAR TO THE ONES IDENTIFIED ON [id number]. - Lymphocytosis. PATHOLOGIST: Oralia Marroquin M.D. REPORT ELECTRONICALLY SIGNED BY: Oralia Marroquin M.D. DATE/TIME: 09/15/2016 16:22 * * * * * * * * * * * * GROSS PATHOLOGY: A. Pleural fluid, Chest: The specimen is submitted unfixed, labeled "Brent Vick". Received by the Cytology Department is ten mL of cloudy red fluid. One ThinPrep slide and a cell block were prepared. (mm 09.14.2016) MANAGER CARD(S): ELADIA Correa([facility]IAC INITIAL CPT CODE(S): A; 59766, 75684 Professional services performed by [facility] at [facility] [address], [place] [address] Technical services performed by [facility] at [address] [place] [address]., [address], [place] [address]. [facility] [address] [place] [address], [address] [facility] [address] [place] [address] CYTO-NONGYN REPORT PROCEDURE Name: BRENT VICK Room #: REG [facility] Guero.#: [id number] Admission: 09/14/16 Date of : 47 Discharge: Report #: [id number] Path Case #: [id number] [place] [address] PHONE: [phone] DIRECTOR: Jose Roberto Bills M.D. * * * END OF REPORT * * *
[2016-09-14 12:05] LABS: BF NUCLEATED CELLS 2603; BF RBC 41758
[2016-09-14 12:06] LABS: CLARITY CLOUDY; COLOR RED; TOTAL VOLUME 55 mL
[2016-09-14 12:07] LABS: MANUAL DIFF YES
[2016-09-14 13:55] LABS: BF MACROPHAGE 2; BF NEUTROPHILS 4
[2016-09-15 15:10] LABS: BODY FLUID ALBUMIN 1.6 g/dL (()); BODY FLUID AMYLASE 38 U/L (()); BODY FLUID GLUCOSE 76 mg/dL (()); BODY FLUID LDH 315 IU/L (()); BODY FLUID PROTEIN 3.2 g/dL (())
== END | disposition home or self-care (01) ==
LOC: ULTRA 08:48
PROVIDERS: Internal Medicine Pulmonary Disease
DX: J90 Pleural effusion, not elsewhere classified (principal)

== ENCOUNTER → 2016-09-15 | Outpatient (CLI) | payer OTHER, BC | LOC: CAT 13:52 | DX: I70.0 Atherosclerosis of aorta (principal); N28.1 Cyst of kidney, acquired; N20.0 Calculus of kidney; R59.0 Localized enlarged lymph nodes; R63.4 Abnormal weight loss; R16.0 Hepatomegaly, not elsewhere classified ==

== ENCOUNTER 2016-09-19 05:41 | Inpatient (IN) | payer OTHER, BC ==
[2016-09-14 09:29] LABS: HEMATOCRIT 40.9 % (42.0-52.0); MCH 29.9 pg (26.0-34.0); MCHC 34.2 g/dL (28.0-37.0); MCV 87.5 fL (80.0-100.0); RBC 4.68 mil/uL (4.50-6.00); RDW 13.3 % (10.5-14.5); WBC 13.6 thou/uL (4.0-11.0)
[2016-09-14 09:33] LABS: URINE BILIRUBIN NEGATIVE (Negative); URINE BLOOD NEGATIVE (Negative); URINE COLOR YELLOW; URINE GLUCOSE-RANDOM* NEGATIVE (Negative); URINE KETONES NEGATIVE (Negative); URINE LEUKOCYTES-REFLEX NEGATIVE (Negative); URINE PROTEIN (DIPSTICK) NEGATIVE (Negative); URINE SPECIFIC GRAVITY 1.015 (1.003-1.035)
[2016-09-14 09:44] LABS: ALBUMIN 2.6 g/dL (3.4-5.0); CALCIUM 9.7 mg/dL (8.5-10.1); CREATININE 0.9 mg/dL (0.7-1.3); POTASSIUM 4.2 mmol/L (3.5-5.1); TOTAL BILIRUBIN 0.5 mg/dL (<0.1-1.0); TOTAL PROTEIN 7.3 g/dL (6.4-8.2)
[2016-09-14 09:46] LABS: APTT 34.5 Seconds (24.5-32.8); PROTIME 10.5 Seconds (9.3-11.4)
[2016-09-19] VITALS (19 sets, daily range): BP systolic 106–128; BP diastolic 54–81
[~2016-09-19] VITALS: Ht 185.4 cm; Wt 73.7 kg
--- NOTE | ~2016-09-19 | HC ---
[facility] [place] [address] [place] [address] CONSULTATION Name: DESTINEYGENNYVERA Zofia Room #: 236-P [facility] IN M.R.#: [id number] Admission: 09/19/16 Attend Phys: Phi Patel Discharge: Date of : 47 Report #: [id number] THIS REPORT FOR: //name// CC: Phi Patel Bebeto Rodas DATE OF SERVICE: 09/19/2016 REQUESTING PHYSICIAN: Dr. Patel. REASON FOR CONSULTATION: Medical management. HISTORY OF PRESENT ILLNESS: The patient is a 71-year-old man who underwent left-sided VATS and pleurodesis early today for recurrent pleural effusion. Pleural biopsies were also taken, and results are pending. The patient is currently seen in the ICU. The patient is alert and awake. He states that his pain is well controlled, and he is symptom free. He denies shortness of breath. The patient does not report chronic medical conditions, except with rheumatoid arthritis, that was diagnosed 3 years ago, and he considers it well controlled. The patient denies history of coronary artery disease, diabetes, COPD, or other problems. The patient is a chronic smoker. He denies alcohol use. PAST MEDICAL HISTORY: Rheumatoid arthritis diagnosed about 3 years ago. CURRENT MEDICATIONS: Reviewed and documented in the patient's chart. FAMILY HISTORY: Reviewed and not pertinent to the patient's current condition. SOCIAL HISTORY: The patient is an everyday smoker. He smokes 3/4 of pack of cigarettes. He does not drink alcohol. REVIEW OF SYSTEMS: As above in HPI section, all others negative. PHYSICAL EXAMINATION: GENERAL: The patient is an elderly man who is in no apparent distress. He is alert and oriented x 3. VITAL SIGNS: His blood pressure is 128/78, heart rate is 102, respiration is 20, temperature is 97.7. HEENT: Pupils are equal. Eye movements are normal. Sclerae are anicteric. NECK: Supple. Thyromegaly is not palpated. The patient has no JVD. Oral mucosa is moist. RESPIRATORY: Respiratory sounds are somewhat diminished, more on the left side. CARDIOVASCULAR: He has regular rhythm and rate. He has no murmurs, gallops or [facility] [address] [place] [address] CONSULTATION Name: VERA MORENO Room #: 236-[facility] IN [facility]#: [id number] Admission: 09/19/16 Attend Phys: Phi Patel Discharge: Date of : 47 Report #: [id number]. GASTROINTESTINAL: Abdomen is soft, nondistended and nontender. Bowel sounds are present. Hepatomegaly or splenomegaly is not palpated. MUSCULOSKELETAL: There is no edema, cyanosis or clubbing. Range of motion is normal. NEUROLOGIC: The patient is alert and oriented x 3. His examination is nonfocal. SKIN: Reveals no skin lesions. Skin is dry and warm. LABORATORY DATA: From 09/14/2016, basic metabolic profile showed sodium of 127. Electrolytes were otherwise normal. Albumin was 2.6. On CBC at that time, white count was 13.6. Hematocrit was slightly low at 40.9. Hemoglobin normal at 14.0, platelets 405. Differential from that time is not available. Chest x-ray currently shows left-sided pneumothorax, and left chest tube as well as left base consolidation. ASSESSMENT AND PLAN: 1. Left-sided recurrent pleural effusion, status post pleural biopsy, and pleurodesis earlier today. Managed by primary team. 2. Mild hyponatremia, asymptomatic, about a week ago. Sodium and other electrolytes will be repleted. Given the patient's possible lung cancer, SIADH is a possibility. If sodium remains low, we will check urine electrolytes as well. 3. Left lower lobe consolidation, and leukocytosis about 5 days ago. We will treat the patient with Zosyn, and follow chest x-ray and labs. 4. Rheumatoid arthritis. Home medications are continued. 5. Deep venous thrombosis prophylaxis. We will continue to follow the patient during the hospitalization, and we will provide further recommendations. Once again, thank you very much for allowing us to participate in the care of your patient. <ELECTRONICALLY SIGNED> By: Abelino Hudson MD 09/20/16 1807 1538 4077 Abelino Hudson MD /nt
--- NOTE | ~2016-09-19 | HC ---
[facility] [place] [address] [place] [address] CONSULTATION Name: JOSHVERA Zofia Room #: 214-P [facility] IN M.R.#: [id number] Admission: 09/19/16 Attend Phys: Phi Patel Discharge: 09/21/16 Date of : 47 Report #: [id number] THIS REPORT FOR: //name// CC: Phi Lora MD HISTORY OF PRESENT ILLNESS: The patient is a very pleasant 71-year-old gentleman who lives near the [address] on the [facility]. 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 He is about a three-quarter pack smoker. He had recently been having recurrent pleural effusions. He recently had a left-sided VATS pleurodesis and was found to have, on the pathology, small cell carcinoma. Note that according to the operative report, this was involving the pleural surface and multiple nodules. I had a chance to discuss all this with the patient and his . His is a cancer survivor, treated by Dr. Daniela Pavon. She has a history triple-negative breast cancer. The surgical path report talked about at least 2 pleural biopsies being positive for small cell carcinoma with a synaptophysin reactivity within the 90% of the tumor . The operative report described undergoing a left pleurodesis and pleural biopsies. PAST MEDICAL HISTORY: Past history is also notable for rheumatoid arthritis, recent-onset atrial fibrillation. Rheumatoid arthritis was diagnosed 3 years ago. SOCIAL HISTORY: The patient smokes three-quarter pack a day of cigarettes. No alcohol. No street drugs. His is present. They have 2 children and one grandchild, age 6. They also have a dog at home. No cat; it recently . MEDICATIONS: Here in the hospital currently include methotrexate 10 mg on Saturdays, digoxin 0.25 daily, amiodarone drip, Ambien at night 5 mg, heparin 5000 units b.i.d. subq, albuterol sulfate respiratory therapy q.4h. while awake, hydromorphone p.r.n. and famotidine 20 mg b.i.d. PHYSICAL EXAMINATION: GENERAL: The patient appears his stated age. The patient is obviously tired. VITAL SIGNS: Height is 6 feet 1, 185.4 cm. Weight 162 pounds, which is 73.7 kilograms. Recent blood pressure is 85/68, O2 sat 91%, respirations 26, pulse 152 and temperature 97.9 axillary, earlier 97.8 orally. HEENT: Face is symmetrical. LUNGS: Have decreased left base breath sounds about the lower third. Chest tube still in place. [address] [address] CONSULTATION Name: VERA MORENO Room #: 214-P [facility] IN M.R.#: [id number] Admission: 09/19/16 Attend Phys: Phi Patel Discharge: 09/21/16 Date of : 47 Report #: [id number] HEART: Irregular rate. No definite murmur. LYMPH NODES: No enlarged lymph nodes in the supraclavicular, cervical, axillary or inguinal region. ABDOMEN: Soft. No masses, nontender. EXTREMITIES: Without clubbing, cyanosis or edema. LABORATORY DATA: Recent labs shows sodium of 127, BUN 18, creatinine 1, glucose of 184 and calcium 8.7. Magnesium 2.1. Coags have been normal at baseline. White count 24.2 postop, hemoglobin 12.2, MCV 86.7 and platelets 325,000. Differential with a slight left shift. Note that he had a recent CAT scan without contrast on September 15 that raised a question of liver metastasis, though in talking with Dr. Castillo, radiologist, and looking at the CAT scan angio from earlier, these may be related to granuloma. So, he suggested either a CAT scan with contrast or perhaps a PET scan. I talked to the patient and his . At this time, they would prefer to wait until as an outpatient to do PET scan. We also talked about doing an MRI of the head. ASSESSMENT AND PLAN: 1. Extensive-stage small cell lung cancer. I talked about typical therapy with carboplatin and VB-16. I also talked about need for MRI of the head and also PET scan to help better stage the patient and also for disease measurement. I am not sure if there are any eligible clinical trials at this point. 2. Pleural effusion, status post pleurodesis. Chest tubes still draining. 3. Atrial fibrillation. Defer to cardiology. 4. History of rheumatoid arthritis. Will likely need to be off Humira, has been receiving methotrexate. We will need to clarify whether to continue that. FOLLOWUP: We will be happy to see the patient or it sounds like he also has plans to see Dr. Lindsay, Medical Oncology at the [facility]. <ELECTRONICALLY SIGNED> By: Steve Mcdaniels MD 09/22/16 0709 0926 1211 Steve Mcdaniels MD /nt
--- NOTE | ~2016-09-19 | HC ---
[facility] [place] [address] [place] [address] CONSULTATION Name: JOSHVERA P Room #: 236-P ADM IN M.R.#: [id number] Admission: 09/19/16 Attend Phys: Phi Patel Discharge: Date of : 47 Report #: [id number] THIS REPORT FOR: //name// CC: Phi Patel Bebeto Rodas DATE OF SERVICE: 09/19/2016 DATE OF SERVICE: 09/19/2016 REASON FOR CONSULTATION: Pleural effusion. IMPRESSION: Pleural effusion, status post left video assisted thoracoscopy with extensive pneumolysis and effusion drainage, pleural biopsy. PLAN: aerosol, DVT prophylaxis. HISTORY OF PRESENT ILLNESS: Very pleasant 71-year-old male with recurrent effusion, drained x5, ultrasound guided last 09/14. The patient seen postop. Doing well, denied progressive shortness of breath. PAST MEDICAL HISTORY: ALLERGIES: No known. FAMILY HISTORY: Noncontributory. SOCIAL HISTORY: Positive tobacco in past. Negative EtOH. REVIEW OF SYSTEMS: No fever or chills. Tolerated post-surgery. Doing well postop. PHYSICAL EXAMINATION: VITAL SIGNS: Temp 97.8, pulse 105, respirations 18, BP 124/74. LUNGS: Decreased breath sounds on left. HEART: Regular. ABDOMEN: Bowel sounds present. EXTREMITIES: Showed no edema. NEUROLOGIC: Alert and oriented. No JVD. at bedside. LABORATORY DATA: Chest x-ray showed left chest tube in place, decreased effusion, left inferolateral PTx. Left lower lobe consolidation. [facility] [address] [place] [address] CONSULTATION Name: VERA MORENO Room #: 236-P ADM IN M.R.#: [id number] Admission: 09/19/16 Attend Phys: Phi Patel Discharge: Date of : 47 Report #: [id number] We will follow with you. By: 1928 0028 Emma Blackman MD /nt
--- NOTE | ~2016-09-19 | EKG ---
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 Persistent anteroseptal ST elevation Artifact in lead(s) I,II,III,aVR,aVL,aVF,V1,V3,V4,V6 Compared to ECG 09/19/2016 20:55:54 atrial fibrillation has replaced sinus tachycardia Electronically Signed On 09-22-2016 7:57:37 CDT by Pritesh Bellamy [email or web address] <ELECTRONICALLY SIGNED> By: Pritesh Bellamy MD, [facility] 09/22/16756 26 26 Pritesh Bellamy MD, [facility] /EPI
--- NOTE | ~2016-09-19 | EKG ---
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 GREEN : 1945 Requested By: Phi Patel Order Number: [id number] MD: Barrett Feliciano Measurements Intervals [place] Rate: 109 P: 80 AR: 164 QRS: -53 QRSD: 102 T: 129 QT: 335 QTc: 452 Interpretive Statements Sinus tachycardia Probable left atrial enlargement LAD, consider left anterior fascicular block Inferior ST depression secondary to ischemia Electronically Signed On 09-19-2016 22:09:03 CDT by Barrett Feliciano [email or web address] <ELECTRONICALLY SIGNED> By: Barrett Feliciano MD 09/19/169 54 54 Barrett Feliciano MD /[facility]
--- NOTE | ~2016-09-19 | O ---
[facility] [place] [address] [place] [address] OPERATIVE REPORT Name: VERA MORENO Room #: 236-P [facility] IN M.R.#: [id number] Admission: 09/19/16 Attend Phys: Phi Patel Discharge: Date of : 47 Report #: [id number] THIS REPORT FOR: //name// CC: Phi Lujanickson PREOPERATIVE DIAGNOSIS: Recurrent left-sided pleural effusion. POSTOPERATIVE DIAGNOSES: 1. Recurrent left-sided pleural effusion. 2. Primary lung cancer with pleural dissemination. OPERATION: 1. Left video-assisted thoracoscopic surgery with extensive pneumonolysis, pleural biopsy and talc pleurodesis. 2. Flexible bronchoscopy. ATTENDING: Phi Patel MD ROLL SCALE MAN: JAMIE Mccarthy (Jeremy). ANESTHESIA: General with double-lumen ET intubation. ESTIMATED BLOOD LOSS: 100 mL. INTRAOPERATIVE CRYSTALLOIDS: 1000 mL URINE OUTPUT: 200 mL. SPECIMENS SENT: Left-sided parietal pleura. ADDITIONAL REMARKS: Frozen section consistent with primary lung cancer, possibly small cell. INDICATIONS FOR PROCEDURE: The patient is a 71-year-old male who over the past 2 months has presented to [facility] with recurrent left-sided pleural effusions. He has undergone 4 thoracenteses draining approximately 1-2 liters on each occasion. The CT scan demonstrated a large left hilar mass with diffuse pleural deposits. A left VATS, tissue biopsy and possible pleurodesis was indicated. The risks, benefits, and limitations of procedure were explained to the patient who agreed to proceed. DESCRIPTION OF PROCEDURE: The patient was seen in the preoperative area where his ID was confirmed using two unique identifiers. The left chest was appropriately marked. The patient was then transferred to the operating room and placed supine on the operating table. Anesthesia was induced by the anesthesiologist and the airway was initially secured with a single lumen ET [facility] [address] [place] [address] OPERATIVE REPORT Name: JOSHVERA P Room #: 236-P [facility] IN [facility]#: [id number] Admission: 09/19/16 Attend Phys: Athanasios Tsiomarcos Discharge: Date of : 47 Report #: [id number] tube. A flexible bronchoscopy was performed. The trachea, left main stem bronchus, left lower and upper bronchi and segmental bronchi were without any abnormalities. In a similar fashion, I examined the right-sided airway, which was also normal. The bronchoscope was withdrawn and the tube was exchanged for a double-lumen ET tube. The patient was then placed in the right lateral decubitus position with the left side up with appropriate padding. The left chest was prepped and draped in the usual sterile surgical fashion. Access into the left pleural cavity was gained through the seventh intercostal space at the posterior axillary line by making a 1 cm incision. The 30-degree thoracoscope was inserted. Upon entering the pleural cavity, we came across multiple pleural adhesions. We spent some time very carefully dividing the pleural adhesions starting from the posterior lateral wall and continuing towards the apex, the base and the mediastinal surface of the lung. Two additional working ports were placed in the 5th intercostal space at the posterior axillary line and the 6th space at the anterior axillary space. Once the lung was completely freed of adhesions, we inspected the pleural space. Unfortunately, there were multiple pleural deposits. Nodularity was also identified on the pulmonary surfaces. The lung was significantly stuck to the lower mediastinum where the large hilar mass was. At that point, we took several biopsies of parietal pleura and sent them for frozen pathology. The frozen confirmed primary lung cancer most likely consistent with a small cell cancer. Since this is a clinical stage IV lung cancer, we decided to proceed with a talc pleurodesis to prevent future recurrent pleural effusions. A total of three bottles of talc were instilled into the pleural space, covering all pleural surfaces. Hemostasis was confirmed. A 28-Uzbek straight chest tube was then brought through the initial thoracoscopic port and placed in the apical posterior position. We then asked anesthesia to ventilate the left lung completely inflated. The chest tube was secured with a 2-0 silk. A total of 40 mls of 0.25% Marcain and 1% lidocaine was inujected into the ports sites for local anesthesia. The deep layers of the port sites were closed with 2-0 Vicryl followed by Monocryl for the epidermis. Dermabond was applied onto the working ports. A sterile dressing was applied onto the chest tube. At the end of procedure, the instrument, sponge and needle counts were correct. Anesthesia was reversed, the patient was extubated, and transferred to recovery in stable condition having tolerated the procedure well. <ELECTRONICALLY SIGNED> By: Phi Patel 09/20/16 1155 1232 1438 Phi Patel /michael
--- NOTE | ~2016-09-19 | HC ---
[facility] [place] [address] [place] [address] CONSULTATION Name: VERA MORENO Room #: 214-P [facility] IN ..#: [id number] Admission: 09/19/16 Attend Phys: Phi Patel Discharge: 09/21/16 Date of : 47 Report #: [id number] THIS REPORT FOR: //name// CC: Phi Rodas REASON FOR CONSULTATION: AFib. HISTORY OF PRESENT ILLNESS: The patient is a 71-year-old male admitted in late August with recurrent pleural effusions, also has a history of tobacco abuse, rheumatoid arthritis and was brought in for elective pleurodesis and pleural biopsy. Postop, he went into atrial fibrillation. Currently, his rates are in the 150s on an amiodarone drip. CT surgery is going to remove his chest tube today and he is being seen by oncology for treatment of his newly diagnosed lung cancer. REVIEW OF SYSTEMS: GENERAL: No fevers or chills. HEENT: No blurred vision. CARDIOVASCULAR: No chest pain or shortness of breath. PULMONARY: No productive cough. GASTROINTESTINAL: No nausea or vomiting. GENITOURINARY: No dysuria. MUSCULOSKELETAL: No myalgias or arthralgias. SOCIAL HISTORY: He is a smoker, continues to smoke. FAMILY HISTORY: Noncontributory. ALLERGIES: No known drug allergies. MEDICATIONS: Have been reviewed and include IV amiodarone. PHYSICAL EXAMINATION: VITAL SIGNS: Temperature is 36.6, pulse 150, respiration 26, blood pressure 85/68, sats are 91%. GENERAL: He is in no acute distress, sitting up in bed. HEENT: Oropharynx is clear. NECK: Supple with no thyromegaly. HEART: Tachycardic and slightly irregular. He has no murmurs. He does not have elevated jugular venous pressure. LUNGS: Clear to auscultation bilaterally. ABDOMEN: Soft, nontender, nondistended with no hepatosplenomegaly. EXTREMITIES: There is no clubbing, cyanosis, edema. NEUROLOGIC: Cranial nerves 2-12 are intact. LABORATORY DATA: White count is 24, hemoglobin 12, platelets 325. Coags: [facility] [address] [place] [address] CONSULTATION Name: VERA MORENO Zofia Room #: 214-P [facility] IN [facility]#: [id number] Admission: 09/19/16 Attend Phys: Phi Patel Discharge: 09/21/16 Date of : 47 Report #: [id number] is 1. Chemistry: Sodium was 127, potassium 4.5, creatinine 1.0, magnesium 2.1. EKG shows atrial fibrillation with rapid ventricular response as well as atypical atrial flutter. Telemetry reveals the same. His recent echocardiogram from last hospitalization shows normal LV size and function, EF of 60-65%. His recent nuclear stress test showed no evidence of ischemia. ASSESSMENT: 1. Atrial fibrillation with rapid ventricular response. 2. Atrial flutter. 3. Lung cancer. 4. Recurrent pleural effusions. 5. Tobacco abuse. 6. Rheumatoid arthritis. PLAN: In summary, the patient is a 71-year-old with normal LV size and function, status post video-assisted thorascopic surgery with drainage of effusion and pleural biopsy and talc pleurodesis who has a new diagnosis of lung cancer and went into atrial fibrillation postoperatively. Given his recent surgical procedure, it is not unusual for this patient to develop atrial fibrillation. I would recommend continuing with IV amiodarone and loading with IV digoxin. Hopefully, we can initiate anticoagulation in the near future. I will continue to follow. <ELECTRONICALLY SIGNED> By: Barrett Feliciano MD 10/20/16 1449 [id number] 1201 Barrett Feliciano MD /nt
--- NOTE | ~2016-09-19 | S ---
[facility] [place] [address] [place] [address] SURGICAL PATH RPT PROCEDURE Name: BRENT VICK Room #: 236-P ADM IN M.R.#: [id number] Admission: 09/19/16 Date of : 47 Discharge: Report #: [id number] Path Case #: [id number] PATHOLOGY REPORT COLLECTION DATE: 09/19/2016 RECEIVED DATE: 09/19/2016 SUBMITTING PHYS: Dr. Phi Patel M.D. OTHER PHYS: Dr. Bebeto Rodas SPECIMEN(S) RECEIVED: A.Left parietal pleural biopsy B.Second specimen left pleural biopsy * * * * * * * * * * * * FINAL DIAGNOSIS: A. Pleura, left parietal pleura, biopsy: - POSITIVE FOR MALIGNANCY; SMALL CELL CARCINOMA. (PLEASE SEE COMMENT) B. Pleura, left pleura, biopsy: - POSITIVE FOR MALIGNANCY; SMALL CELL CARCINOMA. (PLEASE SEE COMMENT) COMMENT: Based on the prior cytology, as well as the frozen section, immunohistochemical stains are ordered. Block A1: AE1/AE3: perinuclear dot-like reactivity; BerEP4: dot-like reactivity identified along with membranous reactivity; TTF-1: strong nuclear reactivity present; Synaptophysin: granular reactivity within 90% of the tumor; CD56: strong membranous reactivity present; CD45: non-reactive. Findings support the diagnosis rendered. Co-review: Dr. Deana Ruiz. (IUV:csd; d/t: 09/20/2016) PATHOLOGIST: Oralia Marroquin M.D. REPORT ELECTRONICALLY SIGNED BY: Oralia Marroquin M.D. DATE/TIME: 09/20/2016 16:32 * * * * * * * * * * * * GROSS PATHOLOGY: A. The first specimen is received fresh from the OR labeled "PhongBrent valdez and Left parietal pleural biopsy". It consists of an irregular, pink-osorio, white fragment of pleura measuring 4.5 x 3.5 x 0.6 cm. Multiple irregular, osorio-white nodules measuring up to [facility] [address] [place] [address] SURGICAL PATH RPT PROCEDURE Name: BRENT VICK Room #: 236-P [facility] IN ..#: [id number] Admission: 09/19/16 Date of : 47 Discharge: Report #: [id number] Path Case #: [id number] 1.0 cm are identified. The specimen is serially sectioned and half is submitted for one frozen section. The frozen section is then submitted as A1. The unfrozen tissue is entirely submitted as A2. (CLW/db; 09/19/2016) B. The specimen is received in formalin labeled "Sylvester Vick, second specimen left pleural biopsy". Received are multiple segments of pink-osorio to pale osorio rubbery tissue measuring 4.6 x 3.8 x 1.2 cm in aggregate dimensions. The specimen is submitted representatively in cassette B1. (CAA; 09/19/2016) FROZEN SECTION DIAGNOSIS: FSA1. "Left pariatal pleural biopsy": - Positive for malignancy. The case is discussed with Dr. Patel in the operating room and a written report is placed in the patient's chart. CW:berenice; d/t: 09/19/16 Testing performed by [facility] at [place] [address], [place] [address] CLINICAL HISTORY: Pleural effusion INITIAL CPT CODE(S): A; 57444, 22054, 63367, 11405, 66526, 96843, 75502 A, B; 34981(2) Professional services performed by [facility] at [place] [address], [place] [address] Technical services performed by [email or web address] at [address] [place] [address], [address], [place] [address]. [facility] [place] [address] PHONE: [phone] DIRECTOR: Jose Roberto Bills M.D. * * * END OF REPORT * * *
[2016-09-20] VITALS (40 sets, daily range): BP systolic 75–112; BP diastolic 46–82
[2016-09-20 06:24] LABS: HEMOGLOBIN 13.8 gm/dL (14.0-18.0); MCH 29.5 pg (26.0-34.0); MCHC 33.6 g/dL (28.0-37.0); PLATELET COUNT 395 thou/uL (150-400); RBC 4.66 mil/uL (4.50-6.00); RDW 13.4 % (10.5-14.5); WBC 24.9 thou/uL (4.0-11.0)
[2016-09-20 06:28] LABS: MANUAL DIFF YES
[2016-09-20 06:30] LABS: CALCIUM 9.3 mg/dL (8.5-10.1); CREATININE 1.2 mg/dL (0.7-1.3); POTASSIUM 4.7 mmol/L (3.5-5.1)
[2016-09-20 08:30] LABS: ABSOLUTE NEUTROPHILS 21.7 thou/uL (1.4-8.2); METAMYELOCYTES 1 %; TOTAL CELL COUNT 100
[2016-09-20 08:31] LABS: ANISOCYTOSIS SLIGHT
[2016-09-21] VITALS (57 sets, daily range): BP systolic 71–120; BP diastolic 49–106
[2016-09-21 04:23] LABS: HEMATOCRIT 36.1 % (42.0-52.0); HEMOGLOBIN 12.2 gm/dL (14.0-18.0); MCH 29.4 pg (26.0-34.0); MCHC 33.8 g/dL (28.0-37.0); MCV 86.7 fL (80.0-100.0); PLATELET COUNT 325 thou/uL (150-400); RBC 4.16 mil/uL (4.50-6.00); RDW 13.5 % (10.5-14.5); WBC 24.2 thou/uL (4.0-11.0)
[2016-09-21 04:25] LABS: MANUAL DIFF YES
[2016-09-21 04:37] LABS: CALCIUM 8.7 mg/dL (8.5-10.1); POTASSIUM 4.5 mmol/L (3.5-5.1)
[2016-09-21 04:49] LABS: ABSOLUTE NEUTROPHILS 21.8 thou/uL (1.4-8.2); TOTAL CELL COUNT 100
== END 2016-09-21 23:09 | DRG 853 ==
LOC: ICU → TBA 05:41 → ICU 05:58 → 2N 09-21 16:59
PROVIDERS: Internal Medicine Endocrinology, Diabetes & Metabolism; Thoracic Surgery (Cardiothoracic Vascular Surgery)
PROC: 5A12012 Performance of Cardiac Output, Single, Manual (ICD-10-PCS; principal; 2016-09-19)
PROC: 0BBP4ZX Excision of Left Pleura, Percutaneous Endoscopic Approach, Diagnostic (ICD-10-PCS; principal; 2016-09-19)
PROC: 3E0L3GC Introduction of Other Therapeutic Substance into Pleural Cavity, Percutaneous Approach (ICD-10-PCS; principal; 2016-09-19)
PROC: 0BJ08ZZ Inspection of Tracheobronchial Tree, Via Natural or Artificial Opening Endoscopic (ICD-10-PCS; principal; 2016-09-19)
PROC: 0BNP4ZZ Release Left Pleura, Percutaneous Endoscopic Approach (ICD-10-PCS; principal; 2016-09-19)
DX: A41.9 Sepsis, unspecified organism (principal); E43 Unspecified severe protein-calorie malnutrition; J15.6 Pneumonia due to other Gram-negative bacteria; C34.90 Malignant neoplasm of unspecified part of unspecified bronchus or lung; J90 Pleural effusion, not elsewhere classified; E87.1 Hypo-osmolality and hyponatremia; I48.92 Unspecified atrial flutter; I48.91 Unspecified atrial fibrillation; M06.9 Rheumatoid arthritis, unspecified; Z91.040 Latex allergy status; Z68.21 Body mass index [BMI] 21.0-21.9, adult; Z88.8 Allergy status to other drugs, medicaments and biological substances
CPT/HCPCS: 10078; 10081; 50010; 50101; 50249; 50386; 50417; 50455; 50497; 50558; 52265; 54118; 56462; 56524; 56526; 56529; 56531; 62110; 62900; 64007; 64029; 65002; 65020; 65040; 65043; 65090; 65105; 70005